=== PATIENT | male | born 1960 | race Two or more races ===

== ENCOUNTER 2019-09-02 10:10 | Day surgery (SDC) | payer OTHER ==
[2019-08-30 15:22] LABS: Urine WBC None Seen /hpf (0 - 3)
[2019-08-30 16:29] LABS: Basophils # (auto) 0.1 uL; Basophils % (auto) 0.7 % (0.0-2.0); Eosinophils # (auto) 0.3 uL; Eosinophils % (auto) 3.4 % (0.0-7.0); Hematocrit 39.9 % (41.0-53.0); Hemoglobin 13.4 g/dL (13.5-17.5); Lymphocytes % (auto) 26.7 % (10.0-50.0); Mean Corpuscular Hemoglobin 29.4 pg (28.0-32.0); Mean Corpuscular Hgb Conc. 33.6 g/dL (32.0-36.0); Mean Corpuscular Volume 87.5 fL (80.0-100.0); Monocytes # (auto) 0.6 uL; Monocytes % (auto) 8.2 % (0.0-12.0); Neutrophils # (auto) 4.6 uL; Platelet Count (auto) 196 10^3/uL (140-450); Red Blood Cells 4.56 10^6/uL (4.5-5.90); Red Cell Distribution Width 13.5 % (11.8-14.3); White Blood Cell 7.5 10^3/uL (4.4-10.8)
[2019-08-30 16:41] LABS: INR 1.02 (0.9-1.15); Partial Thromboplastin Time 27.3 sec (23.64-32.05)
[2019-08-30 16:52] LABS: Urine Bacteria NONE SEEN /hpf (None Seen); Urine Blood Negative /uL (Negative); Urine Specific Gravity 1.014 (1.001-1.035)
[2019-08-30 17:28] LABS: Albumin 3.8 g/dL (3.4-5.0); Anion Gap 8 (5-15); BUN/Creatinine Ratio 20.9; Blood Urea Nitrogen 23 mg/dL (7-18); Calcium 9.4 mg/dL (8.5-10.1); Carbon Dioxide 27 mmol/L (21-32); Chloride 105 mmol/L (98-107); GFR African American 88 mL/min; GFR Non-African American 73 mL/min; Glucose 84 mg/dL (74-106); Potassium 3.7 mmol/L (3.5-5.1); Sodium 140 mmol/L (136-145)
[2019-08-30 17:38] LABS: Alanine Aminotransferase 20 U/L (16-61); Alkaline Phosphatase 59 U/L (45-117); Aspartate Aminotransferase 15 U/L (15-37); Bilirubin, Total 0.4 mg/dL (0.2-1.0); Total Protein 7.2 g/dL (6.4-8.2)
[~2019-09-02] VITALS: Ht 193 cm; Wt 99.3 kg
[~2019-09-02 10:10] MED LIST: SAW1000C PO; TAMS0.4C36 PO
[2019-09-02] MEDS ORDERED: CIPROFLOXACIN 400MG/200ML 200 ML IV ONE (11:46)
[2019-09-02] MEDS ORDERED: fentaNYL CITRATE 100 MCG/2 ML VL ONE ×2 (13:18→13:43)
[2019-09-02] MEDS ORDERED: MIDAZOLAM HCL 1MG/1ML-2 ML VIAL ONE (13:18)
[2019-09-02] MEDS ORDERED: PROPOFOL 10 MG/ML 20 ML IV ONE (13:20)
[2019-09-02] MEDS ORDERED: ePHEDrine SULFATE 50 MG/ML AMP IV PRN (14:15)
[2019-09-02] MEDS ORDERED: ONDANSETRON HCL 4 MG/2 ML VIAL IV PRN (14:15)
[2019-09-02] MEDS ORDERED: HYDROmorphone HCL 2 MG/ML VL IV PRN ×2 (14:15)
[2019-09-02] MEDS ORDERED: hydrALAZINE HCL 20 MG/ML VL IV PRN (14:15)
[2019-09-02] MEDS: MEPERIDINE HCL (25 MG/ML) 1ML VIAL ONE ×2 (14:31→14:54)
[2019-09-02 15:20] VITALS: BP 152/88
== END 2019-09-02 15:36 | disposition home or self-care (01) ==
LOC: SUR 10:10
PROVIDERS: ATTEND Urology
DX: N40.1 Benign prostatic hyperplasia with lower urinary tract symptoms (principal); N13.39 Other hydronephrosis; Z79.899 Other long term (current) drug therapy; Z98.890 Other specified postprocedural states; Z88.0 Allergy status to penicillin
CPT/HCPCS: 36415; 52601; 80053; 81001; 85025; 85610; 85730; 87086; J0744; J2175; J2250; J2704; J3010

== ENCOUNTER 2019-09-04 11:38 | Emergency (ER) | payer OTHER ==
[~2019-09-04] VITALS: Ht 193 cm; Wt 97.5 kg
[2019-09-04] MEDS ORDERED: cefTRIAXone 1GM/50ML D5W 50 ML IV ONE (15:45)
[2019-09-04 16:30] LABS: Urine Bacteria NONE SEEN /hpf (None Seen); Urine Blood 3+ /uL (Negative); Urine WBC 38 /hpf (0 - 3)
[2019-09-04 16:45] VITALS: BP 151/89
== END 2019-09-04 17:06 | disposition home or self-care (01) ==
LOC: ER 11:38
DX: N39.0 Urinary tract infection, site not specified (principal); Z90.79 Acquired absence of other genital organ(s); Z90.49 Acquired absence of other specified parts of digestive tract; Z88.0 Allergy status to penicillin
CPT/HCPCS: 81001; 96365; 99283; J0696